=== PATIENT | male | born 1965 | race Caucasian/White ===

== ENCOUNTER 2019-01-30 13:17 | Emergency (ER) | payer OTHER ==
[~2019-01-30] VITALS: Ht 167.6 cm; Wt 75.7 kg
[2019-01-30 13:35] VITALS: BP_SYST 139
== END 2019-01-30 14:20 | disposition home or self-care (01) ==
LOC: SED 13:17
DX: K05.10 Chronic gingivitis, plaque induced (principal); K08.89 Other specified disorders of teeth and supporting structures; G44.209 Tension-type headache, unspecified, not intractable
CPT/HCPCS: 99283